=== PATIENT | female | born 1950 | race Caucasian/White ===

== ENCOUNTER 2018-08-26 07:47 | Emergency (ER) | payer MEDICARE, BC ==
--- NOTE | 2018-08-26 07:48 | EDM.PDOC ---
ED HPI GENERAL MEDICAL PROBLEM - General Stated Complaint: ABCESSED TOOTH Time Seen by Provider: 08/26/18 07:48 Source of Information: Reports: Patient - History of Present Illness INITIAL COMMENTS - FREE TEXT/NARRATIVE: HISTORY AND PHYSICAL: History of present illness: [Patient has dental pain on the left lower jawline near a crown, moderate swelling and tenderness associated no fever nausea vomiting chills sweats ] Review of systems: As per history of present illness and below otherwise all systems reviewed and negative. Past medical history: As per history of present illness and as reviewed below otherwise noncontributory. Surgical history: As per history of present illness and as reviewed below otherwise noncontributory. Social history: No reported history of drug or alcohol abuse. Family history: As per history of present illness and as reviewed below otherwise noncontributory. Physical exam: HEENT: Atraumatic, normocephalic, pupils reactive, negative for conjunctival pallor or scleral icterus, mucous membranes moist, throat clear, neck supple, nontender, trachea midline. Lungs: Clear to auscultation, breath sounds equal bilaterally, chest nontender. Heart: S1S2, regular, negative for clicks, rubs, or JVD. Abdomen: Soft, nondistended, nontender. Negative for masses or hepatosplenomegaly. Negative for costovertebral tenderness. Pelvis: Stable nontender. Genitourinary: Deferred. Rectal: Deferred. Extremities: Atraumatic, negative for cords or calf pain. Neurovascular unremarkable. Neuro: Awake, alert, oriented. Cranial nerves II through XII unremarkable. Cerebellum unremarkable. Motor and sensory unremarkable throughout. Exam nonfocal. Diagnostics: [Clinical ] Therapeutics: [Dental balls Rocephin 1 g IM Augmentin] [place] Follow-up with dentist as soon as possible Impression: [ enteral abscess ] Definitive disposition and diagnosis as appropriate pending reevaluation and review of above. Left tooth Pain Score (Numeric/FACES): 7 - Related Data Allergies Allergy/AdvReac Type Severity Reaction Status Date / Time No Known Allergies Allergy Verified 08/26/18 08:00 Home Meds: Home Meds Clopidogrel [Plavix] 75 mg PO DAILY 08/26/18 [History] Levothyroxine [Synthroid] 100 mcg PO DAILY 08/26/18 [History] Losartan/Hydrochlorothiazide [Losartan-HCTZ 100-12.5 MG] 1 tab PO DAILY [History] Lovastatin 40 mg PO DAILY 08/26/18 [History] ED ROS GENERAL - Review of Systems Review Of Systems: See Below ED EXAM, GENERAL - Physical Exam Exam: See Below Course - Vital Signs Last Recorded V/S: Last Vital Signs Temp 97.7 F 08/26/18 07:57 Pulse 76 08/26/18 07:57 Resp 16 08/26/18 07:57 BP 176/73 H 08/26/18 07:57 Pulse Ox 97 08/26/18 07:57 - Orders/Labs/Meds Orders: Active Orders 24 hr Category Date Time Status cefTRIAXone [Rocephin] Med 08/26/18 08:08 Once 1 gm IM ONETIME ONE Meds: Medications Discontinued Medications Generic Name Dose Route Start Last Admin Trade Name Freq PRN Reason Stop Dose Admin Benzocaine 2 each 08/26/18 07:53 08/26/18 08:08 Hurricaine One 20% MUCMEM 08/26/18 07:54 2 each ONETIME ONE Administration Lidocaine HCl 15 ml 08/26/18 07:53 08/26/18 08:08 Xylocaine 2% Viscous PO 08/26/18 07:54 15 ml ONETIME ONE Administration Departure - Departure Time of Disposition: 08:09 Disposition: Home, Self-Care 01 Condition: Good Clinical Impression: Dental abscess - Discharge Information Additional Instructions: The following information is given to patients seen in the emergency department who are being discharged to home. This information is to outline your options for follow-up care. We provide all patients seen in our emergency department with a follow-up referral. The need for follow-up, as well as the timing and circumstances, are variable depending upon the specifics of your emergency department visit. If you don't have a primary care physician on staff, we will provide you with a referral. We always advise you to contact your personal physician following an emergency department visit to inform them of the circumstance of the visit and for follow-up with them and/or the need for any referrals to a consulting specialist. The emergency department will also refer you to a specialist when appropriate. This referral assures that you have the opportunity for follow-up care with a specialist. All of these measure are taken in an effort to provide you with optimal care, which includes your follow-up. Under all circumstances we always encourage you to contact your private physician who remains a resource for coordinating your care. When calling for follow-up care, please make the office aware that this follow-up is from your recent emergency room visit. If for any reason you are refused follow-up, please contact the [facility] emergency department at and asked to speak to the emergency department charge nurse. - My Orders Last 24 Hours: My Active Orders 08/26/18 08:08 cefTRIAXone [Rocephin] 1 gm IM ONETIME ONE - Assessment/Plan Last 24 Hours: My Active Orders 08/26/18 08:08 cefTRIAXone [Rocephin] 1 gm IM ONETIME ONE
[2018-08-26] MEDS ORDERED: Benzocaine 20% Topical Spray UD MUCMEM ONE (07:53)
[2018-08-26] MEDS ORDERED: Lidocaine 2% Viscous Solution 15 ML Cup PO ONE (07:53)
[2018-08-26] MEDS ORDERED: cefTRIAXone 1 GM Vial IM ONE (08:08)
[2018-08-26] MEDS ORDERED: Lidocaine 1% 0 ML ONE (08:19)
[2018-08-26] MEDS ORDERED: Lidocaine 1% 2 ML ONE (08:23)
== END 2018-08-26 08:49 | disposition home or self-care (01) ==
LOC: MW.ED 07:47
DX: K04.7 Periapical abscess without sinus (principal); Z79.01 Long term (current) use of anticoagulants; Z79.899 Other long term (current) drug therapy
CPT/HCPCS: 96372; 99282; A9270; J0696; 99283

== ENCOUNTER 2023-03-25 18:25 | Emergency (ER) | payer MEDICARE, BC ==
[2023-03-25] MEDS ORDERED: Labetalol 100 MG/20 ML MDV IVPUSH ONE (19:21)
[2023-03-25 19:49] LABS: BASOPHILS ABSOLUTE AUTO 0.01 K/uL (0.00-0.20); BASOPHILS PERCENT AUTO 0.1 % (0.0-1.0); EOSINOPHILS ABSOLUTE AUTO 0.02 K/uL (0.00-0.45); EOSINOPHILS PERCENT AUTO 0.2 % (0.0-6.0); HEMATOCRIT 32.9 % (37.0-47.0); HEMOGLOBIN 11.6 g/dL (12.0-16.0); IMMATURE GRAN ABSOLUTE AUTO 0.02 K/uL (0.00-0.05); IMMATURE GRAN PERCENT AUTO 0.2 % (0.0-0.4); LYMPHOCYTES ABSOLUTE AUTO 1.36 K/uL (1.00-4.80); LYMPHOCYTES PERCENT AUTO 16.5 % (24.0-44.0); MEAN CORPUSCULAR HEMOGLOBIN 29.3 pg (28.0-32.0); MEAN CORPUSCULAR HGB CONC 35.3 g/dL (32.0-36.0); MEAN CORPUSCULAR VOLUME 83.1 fL (83.0-99.0); MEAN PLATELET VOLUME 8.4 fL (9.4-12.3); MONOCYTES PERCENT AUTO 6.1 % (0.0-8.0); NEUTROPHILS ABSOLUTE AUTO 6.32 K/uL (1.80-7.70); NEUTROPHILS PERCENT AUTO 76.9 % (41.0-71.0); PLATELET COUNT,PLT 254 K/uL (150-400); RED BLOOD CELL COUNT 3.96 M/uL (4.10-5.30); WHITE BLOOD CELL COUNT,WBC 8.23 K/uL (3.9-11.3)
[2023-03-25 20:12] LABS: ALBUMIN 3.9 g/dL (3.4-5.0); BILIRUBIN TOTAL 0.5 mg/dL (0.2-1.0); CALCIUM 8.9 mg/dL (8.5-10.1); CARBON DIOXIDE,CO2 27.5 mmol/L (21.0-32.0); CREATININE 0.7 mg/dL (0.6-1.0); EST CRCL DRUG DOSING (CG) 58.33 mL/min; POTASSIUM,K 3.6 mmol/L (3.5-5.1); PROTEIN TOTAL,TP 7.7 g/dL (6.4-8.2)
== END 2023-03-25 20:40 | disposition home or self-care (01) ==
LOC: MW.ED 18:25
DX: I10 Essential (primary) hypertension (principal); E78.00 Pure hypercholesterolemia, unspecified; E03.9 Hypothyroidism, unspecified; Z86.73 Personal history of transient ischemic attack (TIA), and cerebral infarction without residual deficits; Z79.02 Long term (current) use of antithrombotics/antiplatelets; Z79.899 Other long term (current) drug therapy; Z88.8 Allergy status to other drugs, medicaments and biological substances
CPT/HCPCS: 36415; 80053; 84484; 85025; 93005; 96374; 99283; J3490; 93010; 99284

== ENCOUNTER 2023-06-06 12:20 | Emergency (ER) | payer MEDICARE, BC ==
[2023-06-06] MEDS ORDERED: Acetaminophen 325 MG Tab PO ONE (13:31)
== END 2023-06-06 14:40 | disposition home or self-care (01) ==
LOC: MW.ED 12:20
DX: S80.02XA Contusion of left knee, initial encounter (principal); E78.00 Pure hypercholesterolemia, unspecified; I10 Essential (primary) hypertension; E03.9 Hypothyroidism, unspecified; Z88.8 Allergy status to other drugs, medicaments and biological substances; Z79.899 Other long term (current) drug therapy; W22.8XXA Striking against or struck by other objects, initial encounter
CPT/HCPCS: 70450; 71046; 72125; 72170; 73552; 73590; 99284; A9270

== ENCOUNTER 2024-06-02 17:34 | Emergency (ER) | payer MEDICARE, BC ==
[2024-06-02] MEDS: predniSONE 20 MG Tab PO ONE (20:06)
== END 2024-06-02 20:11 | disposition home or self-care (01) ==
LOC: MW.ED 17:34
DX: H61.23 Impacted cerumen, bilateral (principal); H65.93 Unspecified nonsuppurative otitis media, bilateral; I10 Essential (primary) hypertension; E03.9 Hypothyroidism, unspecified; Z79.890 Hormone replacement therapy; Z79.899 Other long term (current) drug therapy; Z88.8 Allergy status to other drugs, medicaments and biological substances
CPT/HCPCS: 99283; A9270

== ENCOUNTER 2024-09-06 09:06 | Emergency (ER) | payer MEDICARE, BC ==
[2024-09-06] MEDS: Ondansetron 4 MG/2 ML SDV IVPUSH ONE (09:18)
[2024-09-06] MEDS: fentaNYL 100 MCG/2 ML SDV IVPUSH STA (09:21)
[2024-09-06] MEDS: Iopamidol 755 MG/ML 500 ML Multipack Bottle IVPUSH STA (09:42)
[2024-09-06] MEDS: Metoclopramide 10 MG/2 ML SDV IVPUSH STA (10:15)
[2024-09-06 10:25] LABS: BASOPHILS ABSOLUTE AUTO 0.02 K/uL (0.00-0.20); BASOPHILS PERCENT AUTO 0.2 % (0.0-1.0); EOSINOPHILS ABSOLUTE AUTO 0.04 K/uL (0.00-0.45); EOSINOPHILS PERCENT AUTO 0.5 % (0.0-6.0); HEMATOCRIT 34.1 % (37.0-47.0); HEMOGLOBIN 11.7 g/dL (12.0-16.0); IMMATURE GRAN ABSOLUTE AUTO 0.05 K/uL (0.00-0.05); IMMATURE GRAN PERCENT AUTO 0.6 % (0.0-0.4); LYMPHOCYTES ABSOLUTE AUTO 1.42 K/uL (1.00-4.80); LYMPHOCYTES PERCENT AUTO 17.3 % (24.0-44.0); MEAN CORPUSCULAR HEMOGLOBIN 30.1 pg (28.0-32.0); MEAN CORPUSCULAR HGB CONC 34.3 g/dL (32.0-36.0); MEAN CORPUSCULAR VOLUME 87.7 fL (83.0-99.0); MEAN PLATELET VOLUME 8.8 fL (9.4-12.3); MONOCYTES PERCENT AUTO 9.8 % (0.0-8.0); NEUTROPHILS ABSOLUTE AUTO 5.87 K/uL (1.80-7.70); NEUTROPHILS PERCENT AUTO 71.6 % (41.0-71.0); PLATELET COUNT,PLT 317 K/uL (150-400); RED BLOOD CELL COUNT 3.89 M/uL (4.10-5.30)
[2024-09-06] MEDS: Ondansetron 4 MG/2 ML SDV ONE (10:27)
[2024-09-06] MEDS: fentaNYL 100 MCG/2 ML SDV ONE (10:27)
[2024-09-06 10:43] LABS: A/G RATIO 1.2 (0.9-1.6); ALBUMIN 3.6 g/dL (3.4-5.0); BILIRUBIN TOTAL 0.8 mg/dL (0.2-1.0); CALCIUM 8.8 mg/dL (8.5-10.1); CARBON DIOXIDE,CO2 23.2 mmol/L (21.0-32.0); EST CRCL DRUG DOSING (CG) 41.97 mL/min; POTASSIUM,K 4.6 mmol/L (3.5-5.1); PROTEIN TOTAL,TP 6.6 g/dL (6.4-8.2)
[2024-09-06] MEDS: fentaNYL 50 MCG/ML SDV IVPUSH ONE (10:47)
[2024-09-06] MEDS ORDERED: fentaNYL 100 MCG/2 ML SDV IVPUSH ONE (11:15)
[2024-09-06 11:26] LABS: HEMATOCRIT 22.8 % (37.0-47.0)
[2024-09-06] MEDS: Sodium Chloride 0.9% 1,000 ML IV STA (11:26)
[2024-09-06] MEDS: Norepinephrine Bit/D5W Premix 250 ML IV SCH (11:26)
== END 2024-09-06 12:30 ==
LOC: MW.ED 09:06
DX: I10 Essential (primary) hypertension (principal); E78.00 Pure hypercholesterolemia, unspecified; E03.9 Hypothyroidism, unspecified; Z86.73 Personal history of transient ischemic attack (TIA), and cerebral infarction without residual deficits; Z88.8 Allergy status to other drugs, medicaments and biological substances; Z79.890 Hormone replacement therapy; Z79.899 Other long term (current) drug therapy; S06.0X1A Concussion with loss of consciousness of 30 minutes or less, initial encounter; S30.1XXA Contusion of abdominal wall, initial encounter; S30.0XXA Contusion of lower back and pelvis, initial encounter; S82.401A Unspecified fracture of shaft of right fibula, initial encounter for closed fracture; S82.832A Other fracture of upper and lower end of left fibula, initial encounter for closed fracture; S72.402A Unspecified fracture of lower end of left femur, initial encounter for closed fracture
CPT/HCPCS: 36415; 36430; 70450; 71260; 72125; 73552; 73560; 73590; 73600; 73620; 74177; 80053; 82550; 84484; 85014; 85018; 85025; 86850; 86900; 86901; 86920; J2405; J2765; J3010; J7030; P9016; Q9967; 72128-26; 72131-26; 99284